=== PATIENT | male | born 1955 | race Caucasian/White ===

== ENCOUNTER 2018-07-07 09:37 | Day surgery (SDC) | payer BC ==
[2018-07-07] MEDS ORDERED: DIPHENHYDRAMINE 50 MG in SODIUM CHLORIDE 50 ML IVPB ONE (10:00)
[2018-07-07] MEDS ORDERED: ACETAMINOPHEN 325 MG TABLET (FP) PO ONE (10:00)
[2018-07-07] MEDS ORDERED: SODIUM CHLORIDE IVPB ONE (10:30)
[2018-07-07] MEDS ORDERED: RITUXIMAB IVPB ONE (10:30)
[2018-07-07 10:56] LABS: BASO % 2.5 % (0-2.0); EOS % 6.2 % (0-4.5); HEMATOCRIT 36.7 % (35.4-49); HEMOGLOBIN 12.3 GM/dL (11.7-16.9); LYMPH % 8.1 % (8-40); MCH 28.8 pg (25.7-33.7); MCHC 33.5 g/dl (32.0-35.9); MEAN CELL VOLUME 85.9 fl (80-96); MEAN PLT VOLUME 9.8 fl (7.5-11.1); NEUT % 76.2 % (42.8-82.8); PLATELET COUNT 40 K/MM3 (134-434); RBC 4.28 M/mm3 (4.00-5.60); WHITE BLOOD COUNT 6.8 K/mm3 (4.0-10.0)
[2018-07-07 11:45] LABS: ALBUMIN 3.1 g/dl (3.4-5.0); ALK PHOS 71 U/L (45-117); ANION GAP 5 MMOL/L (8-16); BILIRUBIN,TOTAL 0.9 mg/dL (0.2-1); BLOOD UREA NITROGEN 24 mg/dL (7-18); CALCIUM 8.5 mg/dL (8.5-10.1); CHLORIDE 100 mmol/L (98-107); CO2 27 mmol/L (21-32); CREATININE 1.1 mg/dL (0.55-1.3); GLUCOSE,RANDOM 138 mg/dL (74-106); PREALBUMIN 33.2 mg/dl (20-40); SGOT/AST 27 U/L (15-37); SGPT/ALT 32 U/L (13-61); SODIUM 132 mmol/L (136-145)
[2018-07-07 12:19] LABS: PLATELET ESTIMATE DECREASED
[2018-07-07] MEDS ORDERED: SODIUM POLYSTYRENE SULFONATE 15 GM/60 ML BOTTLE PO ONE (14:45)
[2018-07-07] MEDS ORDERED: SODIUM CHLORIDE 500 ML IV ONE (15:00)
[2018-07-07 18:46] VITALS: PULSE 67; TEMP 99
[2018-07-07 19:20] VITALS: BP 126/71
== END 2018-07-07 19:20 | disposition home or self-care (01) ==
LOC: JCHEMO 09:37 → J7W 09:39 → JCHEMO 19:20
PROVIDERS: ATTEND Internal Medicine Hematology & Oncology
DX: D69.3 Immune thrombocytopenic purpura (principal)
CPT/HCPCS: 36415; 80053; 83735; 84134; 85025; 96367; 96368; 96375; 96413; 96415; J7030; J9312

== ENCOUNTER 2018-07-14 09:09 | Day surgery (SDC) | payer BC ==
[~2018-07-14 09:09] MED LIST: ACETAMINOPHEN 325 MG TABLET (FP) PO ONE
[2018-07-14] MEDS ORDERED: RITUXIMAB IVPB ONE (09:30)
[2018-07-14] MEDS ORDERED: SODIUM CHLORIDE IVPB ONE (09:30)
[2018-07-14 10:35] LABS: BASO % 2.6 % (0-2.0); EOS % 6.1 % (0-4.5); HEMATOCRIT 36.2 % (35.4-49); HEMOGLOBIN 12.3 GM/dL (11.7-16.9); LYMPH % 9.5 % (8-40); MCH 28.7 pg (25.7-33.7); MCHC 34.1 g/dl (32.0-35.9); MEAN CELL VOLUME 84.2 fl (80-96); MEAN PLT VOLUME 10.3 fl (7.5-11.1); MONO % 8.2 % (3.8-10.2); NEUT % 73.6 % (42.8-82.8); PLATELET COUNT 71 K/MM3 (134-434); RBC 4.29 M/mm3 (4.00-5.60); RDW 17.2 % (11.9-15.9)
[2018-07-14 10:36] LABS: ALBUMIN 3.1 g/dl (3.4-5.0); ALK PHOS 55 U/L (45-117); ANION GAP 7 MMOL/L (8-16); BILIRUBIN,TOTAL 0.9 mg/dL (0.2-1); BLOOD UREA NITROGEN 20 mg/dL (7-18); CALCIUM 8.8 mg/dL (8.5-10.1); CHLORIDE 103 mmol/L (98-107); CO2 24 mmol/L (21-32); CREATININE 1.1 mg/dL (0.55-1.3); GLUCOSE,RANDOM 118 mg/dL (74-106); MAGNESIUM 1.8 mg/dL (1.8-2.4); POTASSIUM 4.8 mmol/L (3.5-5.1); SGOT/AST 28 U/L (15-37); SGPT/ALT 33 U/L (13-61); SODIUM 135 mmol/L (136-145); TOT PROT 7.1 g/dl (6.4-8.2)
[2018-07-14 11:59] LABS: PLATELET ESTIMATE DECREASED
[2018-07-14 16:10] VITALS: TEMP 97.6
[2018-07-14 16:26] VITALS: BP 136/73; PULSE 69
== END 2018-07-14 15:40 | disposition home or self-care (01) ==
LOC: JCHEMO 09:09 → J7W 09:37 → JCHEMO 15:40
PROVIDERS: ATTEND Internal Medicine Hematology & Oncology
DX: D69.3 Immune thrombocytopenic purpura (principal)
CPT/HCPCS: 36415; 80053; 83735; 84134; 85025; 96375; 96413; 96415; J7030; J9312

== ENCOUNTER 2018-07-21 10:48 | Day surgery (SDC) | payer BC ==
[~2018-07-21 10:48] MED LIST changes: +DIPHENHYDRAMINE 50 MG in SODIUM CHLORIDE 50 ML IVPB ONE; +RITUXIMAB IVPB ONE; +SODIUM CHLORIDE IVPB ONE
[2018-07-21 11:53] LABS: BASO % 1.3 % (0-2.0); HEMATOCRIT 35.8 % (35.4-49); HEMOGLOBIN 11.9 GM/dL (11.7-16.9); LYMPH % 7.6 % (8-40); MCHC 33.3 g/dl (32.0-35.9); MEAN CELL VOLUME 83.8 fl (80-96); MEAN PLT VOLUME 10.5 fl (7.5-11.1); NEUT % 77.1 % (42.8-82.8); PLATELET COUNT 141 K/MM3 (134-434); RBC 4.26 M/mm3 (4.00-5.60); RDW 17.4 % (11.9-15.9); WHITE BLOOD COUNT 7.4 K/mm3 (4.0-10.0)
[2018-07-21 17:29] VITALS: TEMP 98.5
[2018-07-21 17:32] VITALS: BP 126/66; PULSE 63
== END 2018-07-21 16:15 | disposition home or self-care (01) ==
LOC: JCHEMO 10:48 → J7W 10:49 → JCHEMO 16:15
PROVIDERS: ATTEND Internal Medicine Hematology & Oncology
DX: D69.3 Immune thrombocytopenic purpura (principal)
CPT/HCPCS: 36415; 85025; 96375; 96413; 96415; J7030; J9312

== ENCOUNTER 2018-07-21 23:59 | Inpatient (IN) | payer BC ==
[2018-07-22 00:19] VITALS: BMI 26.1
--- NOTE | 2018-07-22 00:20 | PDOC ---
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 Pt was given Benadryl today prior to Rituxan, and was told if he felt shortness of breath at home to take Benadryl. Pt stated he took Benadryl with no relief of symptoms. Pt admitted to clearing his throat. Pt denied cough, sputum production, fever, chills, chest pain, palpitations, abdominal pain. Last stress test x2 years ago - reported normal Allergies: NKDA PCP: Dr. Dubose Government Program Manager: Dr. Sharma Past History - Past Medical History Allergies/Adverse Reactions: Allergies Allergy/AdvReac Type Severity Reaction Status Date / Time No Known Drug Allergies Allergy Verified 07/22/18 00:18 Home Medications: Ambulatory Orders Danazol [Danocrine -] 200 mg PO BID 07/22/18 Eltrombopag Olamine [Promacta] 100 mg PO DAILY 07/22/18 Gabapentin 100 mg PO BID 07/22/18 Lisinopril [Zestril] 2.5 mg PO DAILY 07/22/18 Metformin HCl [Glucophage] 1,000 mg PO BID 07/22/18 Metoprolol Tartrate 25 mg PO DAILY 07/22/18 - Suicide/Smoking/Psychosocial Hx Smoking History: Never smoked Have you smoked in the past 12 months: No Information on smoking cessation initiated: No Hx Alcohol Use: No Drug/Substance Use Hx: No Review of Systems - Review of Systems Able to Perform ROS?: Yes Comments:: 07/22/18 00:35 General: denied fever, chills, generalized weakness. HEENT: denied sore throat, rhinorrhea, ear pain. Heart: denied chest pain, palpitations, syncope, diaphoresis. Respiratory: admitted to shortness of breath. denied cough, sputum production, hemoptysis. Abdomen: denied abdominal pain, nausea, vomiting, diarrhea, constipation, blood in stool. : denied dysuria, increased urinary frequency, hematuria, urinary incontinence , flank pain. Back: denied back pain. Musculoskeletal: denied joint pain, muscle pain, joint swelling. Neurological: denied headache, dizziness, numbness, tingling, weakness. Skin: denied rash, laceration, abrasion. *Physical Exam - Vital Signs Last Vital Signs Temp Pulse Resp BP Pulse Ox 97.6 F 81 22 H 145/83 99 07/22/18 00:18 07/22/18 00:18 07/22/18 00:18 07/22/18 00:18 07/22/18 00:18 - Physical Exam Comments: 07/22/18 02:03 Constitutional: Well-nourished, Well-developed, appearing stated age. sitting upright in no apparent distress. HEENT: head is normocephalic, atraumatic. EOMI. PERRLA. Neck: supple. Full ROM. Heart: regular rhythm. no murmurs, rubs or gallops. Lungs: tachypneic. decreased breath sounds bilaterally. no crackles. no wheezing. no stridor. speaking full sentences. Abdomen: soft, nontender. normal bowel sounds. no rebound, guarding, masses. Extremities: peripheral pulses intact. no lower extremity edema. Neurological: CN 2-12 grossly intact. moves all four extremities. Psych: awake, alert, oriented x3. follows commands. answers questions appropriately. Procedures - Bedside Ultrasound Bedside Ultrasound: Lung Remarks: 07/22/18 03:22 Bilateral B-lines. Plethoric IVC. right sided pleural effusion. ED Treatment Course - LABORATORY CBC & Chemistry Diagram: 07/22/18 01:08 07/22/18 06:00 Medical Decision Making - Medical Decision Making 07/22/18 00:53 62 year old male with above PMH presented to ED for SOB s/p Rituxan administration. Initial Vital Signs Temp Pulse Resp BP Pulse Ox 97.6 F 81 22 H 145/83 99 07/22/18 00:18 07/22/18 00:18 07/22/18 00:18 07/22/18 00:18 07/22/18 00:18 Afebrile. No tachycardia. Tachypnea. Mild hypertension. No hypoxia on room air. CBC performed earlier yesterday. No leukocytosis. No anemia. Labs ordered: CBC, CMP, mag, troponin, VBG Imaging ordered: CXR Medications ordered: duoneb EKG performed at 0017: rate 81, regular rhythm, left axis, normal intervals, nonspecific ST changes. 07/22/18 01:23 VBG - respiratory alkalosis 07/22/18 02:04 CBC WBC 9.0 K/mm3 (4.0-10.0) 07/22/18 01:08 RBC 4.36 M/mm3 (4.00-5.60) 07/22/18 01:08 Hgb 12.4 GM/dL (11.7-16.9) 07/22/18 01:08 Hct 36.8 % (35.4-49) 07/22/18 01:08 MCV 84.4 fl (80-96) 07/22/18 01:08 MCH 28.5 pg (25.7-33.7) 07/22/18 01:08 MCHC 33.8 g/dl (32.0-35.9) 07/22/18 01:08 RDW 17.4 % (11.9-15.9) H 07/22/18 01:08 Plt Count 73 K/MM3 (134-434) L D 07/22/18 01:08 MPV 10.2 fl (7.5-11.1) 07/22/18 01:08 Absolute Neuts (auto) 7.2 K/mm3 (1.5-8.0) 07/22/18 01:08 Neutrophils % 80.2 % (42.8-82.8) 07/22/18 01:08 Lymphocytes % 6.8 % (8-40) L 07/22/18 01:08 Monocytes % 6.4 % (3.8-10.2) 07/22/18 01:08 Eosinophils % 4.3 % (0-4.5) 07/22/18 01:08 Basophils % 2.3 % (0-2.0) H 07/22/18 01:08 Nucleated RBC % 0 % (0-0) 07/22/18 01:08 No leukocytosis. No anemia. CMP Sodium 129 mmol/L (136-145) L 07/22/18 01:08 Potassium 5.7 mmol/L (3.5-5.1) H 07/22/18 01:08 Chloride 102 mmol/L (98-107) 07/22/18 01:08 Carbon Dioxide 22 mmol/L (21-32) 07/22/18 01:08 Anion Gap 5 MMOL/L (8-16) L 07/22/18 01:08 BUN 17 mg/dL (7-18) 07/22/18 01:08 Creatinine 0.8 mg/dL (0.55-1.3) 07/22/18 01:08 Creat Clearance w eGFR 97.63 (>60) 07/22/18 01:08 Random Glucose 71 mg/dL (74-106) L 07/22/18 01:08 Calcium 8.1 mg/dL (8.5-10.1) L 07/22/18 01:08 Magnesium 1.9 mg/dL (1.8-2.4) 07/22/18 01:08 Total Bilirubin 0.8 mg/dL (0.2-1) 07/22/18 01:08 AST 37 U/L (15-37) 07/22/18 01:08 ALT 43 U/L (13-61) 07/22/18 01:08 Alkaline Phosphatase 65 U/L (45-117) 07/22/18 01:08 Troponin I 0.02 ng/ml (0.00-0.05) 07/22/18 01:08 B-Natriuretic Peptide 2318.5 pg/ml (5-125) H 07/22/18 01:08 Total Protein 7.1 g/dl (6.4-8.2) 07/22/18 01:08 Albumin 3.0 g/dl (3.4-5.0) L 07/22/18 01:08 Hyponatremia. Hyperkalemia. -No EKG changes -Will not treat No MARTÍN. Normal mag. Normal troponin. BNP elevation. -No peripheral edema -Pending CXR for pulmonary fluid overload evaluation Dr. Lauren pagesharron for recommendations. 07/22/18 02:53 Bedside Ultrasound performed: bilateral B-lines, right sided pleural effusion, plethoric IVC. New onset CHF. Results explained to patient. Pt agrees to be admitted. Medications ordered: Lasix 40 mg IV Pt admitted to Dr. Balderas's service. *DC/Admit/Observation/Transfer Diagnosis at time of Disposition: CHF (congestive heart failure), History of ITP - Discharge Dispostion Disposition: HOME Condition at time of disposition: Stable Decision to Admit order: Yes - Referrals - Patient Instructions - Post Discharge Activity
[2018-07-22] MEDS ORDERED: ALBUTEROL SO4 2.5/IPRATROPIUM 0.5 INH SOL 3 ML VIAL.NEB. NEB ONE ×2 (00:50→00:54)
--- NOTE | 2018-07-22 01:10 | PDOC ---
Documentation entered by Vandana Lawrence SCRIBE, acting as scribe for Nedra Browning DO. Nedra Browning DO: This documentation has been prepared by the [facility] child[facility] Daisy, SCRIBE, under my direction and personally reviewed by me in its entirety. I confirm that the documentation accurately reflects all work, treatment, procedures, and medical decision making performed by me. Attending Attestation - Resident Resident Name: Dior Castorena - ED Attending Attestation I have performed the following: I have examined & evaluated the patient, The case was reviewed & discussed with the resident, I agree w/resident's findings & plan - HPI HPI: 07/22/18 00:39 The patient is a 62 YOM with a PMH of ITP on Rituxan, HTN, and DM who presents to the ER for evaluation of shortness of breath in the setting of receiving Rituxan today. Patient was given Benadryl before he was given the Rituxan and took Benadryl at home as well with no improvement of his shortness of breath. The patient denies chest pain, headache and dizziness. Denies fever, chills, nausea, vomit, diarrhea and constipation. Denies dysuria, frequency, urgency and hematuria. Allergies: NKDA - Physicial Exam PE: 07/22/18 00:51 ADULT PHYSICAL EXAM Constitutional: Awake, alert, oriented. No acute distress. Eyes: PERRL. EOMI. Conjunctivae are not pale. ENT: Mucous membranes are moist and intact. Posterior pharynx without exudates or erythema. Cardiovascular: Regular rate. Regular rhythm. S1, S2 regular. Distal pulses are 2+ and symmetric. Pulmonary/Chest: No evidence of respiratory distress. (+) Diminished at the bases bilaterally. No wheezing, rales or rhonchi. Abdominal: Soft and non-distended. There is no tenderness. No rebound, guarding or rigidity. Musculoskeletal: No edema. Full range of motion in all extremities. No calf tenderness. Radial/pedal pulses are intact and 2+ bilaterally Skin: Skin is warm and dry. Neurological: Alert and oriented to person, place, and time. Cranial nerves II- XII are grossly intact. Psychiatric: Good eye contact. Normal interaction, affect and behavior. - Medical Decision Making 07/22/18 00:58 a/p: 62yo male with hx of ITP with rituxan infusion today -last infusion -states usually he receives benadryl pt the infusion, but today he felt more tired and sob -per , on prior infusions, pt has had benadryl to avoid all side effects. Pt denies parekh, no neck pain, no cp/palpitations -will give albuterol -will obtain labs, and cxr -pt had labs earlier- plts 141 -pt had benadryl earler -hx of smoking -will send chem, labs, cxr, ekg, will monitor and reassess -pt is nontoxic in appearance 07/22/18 01:49 pt with mild hyponatremia and hyperkalemia will medicate and reassess will need a repeat chem prior to dc 07/22/18 01:50 bnp >2000 Heart Score/ECG Review - ECG Intrepretation Comment:: 07/22/18 00:54 sinus at 81, nl axis, nl interval, LVH, no acute st/t wave findings
[2018-07-22 01:19] LABS: BASO % 2.3 % (0-2.0); EOS % 4.3 % (0-4.5); HEMATOCRIT 36.8 % (35.4-49); HEMOGLOBIN 12.4 GM/dL (11.7-16.9); LYMPH % 6.8 % (8-40); MCH 28.5 pg (25.7-33.7); MCHC 33.8 g/dl (32.0-35.9); MEAN CELL VOLUME 84.4 fl (80-96); MEAN PLT VOLUME 10.2 fl (7.5-11.1); MONO % 6.4 % (3.8-10.2); NEUT % 80.2 % (42.8-82.8); PLATELET COUNT 73 K/MM3 (134-434); RBC 4.36 M/mm3 (4.00-5.60); RDW 17.4 % (11.9-15.9)
[2018-07-22 01:20] LABS: VENOUS PC02 31.4 mmHg (41-51); VENOUS PH 7.42 (7.31-7.41)
[2018-07-22 01:46] LABS: ALK PHOS 65 U/L (45-117); ANION GAP 5 MMOL/L (8-16); BILIRUBIN,TOTAL 0.8 mg/dL (0.2-1); BLOOD UREA NITROGEN 17 mg/dL (7-18); CALCIUM 8.1 mg/dL (8.5-10.1); CHLORIDE 102 mmol/L (98-107); CO2 22 mmol/L (21-32); CREATININE 0.8 mg/dL (0.55-1.3); GLUCOSE,RANDOM 71 mg/dL (74-106); POTASSIUM 5.7 mmol/L (3.5-5.1); SGOT/AST 37 U/L (15-37); SGPT/ALT 43 U/L (13-61); SODIUM 129 mmol/L (136-145); TOT PROT 7.1 g/dl (6.4-8.2)
[2018-07-22 01:48] LABS: MAGNESIUM 1.9 mg/dL (1.8-2.4); N-TERMINAL BNP 2318.5 pg/ml (5-125)
[2018-07-22 02:09] LABS: INR 1.08 (0.83-1.09); PROTHROMBIN TIME (PATIENT) 12.7 SEC (9.7-13.0)
[2018-07-22] MEDS ORDERED: FUROSEMIDE 40 MG/4 ML INJECTABLE VIAL IVPUSH ONE ×2 (03:18→03:35)
[2018-07-22] MEDS ORDERED: FUROSEMIDE 40 MG/4 ML INJECTABLE VIAL ONE (03:42)
[2018-07-22 07:09] LABS: ANION GAP 5 MMOL/L (8-16); BLOOD UREA NITROGEN 17 mg/dL (7-18); CALCIUM 8.1 mg/dL (8.5-10.1); CHLORIDE 103 mmol/L (98-107); CO2 22 mmol/L (21-32); CREATININE 0.9 mg/dL (0.55-1.3); GLUCOSE,RANDOM 71 mg/dL (74-106); POTASSIUM 5.2 mmol/L (3.5-5.1); SODIUM 131 mmol/L (136-145)
[2018-07-22 07:59] VITALS: BP 126/74; PULSE 70; TEMP 97.9
--- NOTE | 2018-07-22 09:12 | HP ---
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 Pt provides hx of "allergic type reaction to first infusion of Rituxan-- has since been pre medicated with benadryl for treatments successfully; however after going home after completing treatment patient reports began to feel scratchy throat with "some difficulty " breathing which prompted ER visit. Pt denied cough, sputum production, fever, chills, chest pain, palpitations, abdominal pain. Denies hx of CHF in the past Patient has established out patient cardiac follow up. Case discussed with Oncology Dr Lauren and Cardiology Dr Carey Patient will follow up with both as out patient History Source: Patient, Medical Record Limitations to Obtaining History: No Limitations - Past Medical History Cardiovascular: Yes: HTN Heme/Onc: Yes: Thrombocytopenia (on Rituxin for ITP - just completed last infusion followed by Dr Lauren) Endocrine: Yes: Diabetes Mellitus - Smoking History Smoking history: Current every day smoker Have you smoked in the past 12 months: Yes Aproximately how many cigarettes per day: 30 - Alcohol/Substance Use Hx Alcohol Use: No - Social History ADL: Independent Home Medications - Allergies Allergies/Adverse Reactions: Allergies Allergy/AdvReac Type Severity Reaction Status Date / Time No Known Drug Allergies Allergy Verified 07/22/18 00:18 - Home Medications Home Medications: Ambulatory Orders Danazol [Danocrine -] 200 mg PO BID 07/22/18 Eltrombopag Olamine [Promacta] 100 mg PO DAILY 07/22/18 Gabapentin 100 mg PO BID 07/22/18 Lisinopril [Zestril] 2.5 mg PO DAILY 07/22/18 Metformin HCl [Glucophage] 1,000 mg PO BID 07/22/18 Metoprolol Tartrate 25 mg PO DAILY 07/22/18 Review of Systems - Review of Systems Constitutional: reports: No Symptoms. denies: Chills, Diaphoresis, Fever Eyes: reports: No Symptoms HENT: reports: No Symptoms, Other (throat scrathy difficulty breathing no difficulty with speech) Neck: reports: No Symptoms Cardiovascular: reports: No Symptoms. denies: Palpitations, Shortness of Breath Respiratory: denies: Cough, Orthopnea, SOB, Wheezing Gastrointestinal: reports: No Symptoms Genitourinary: reports: No Symptoms Breasts: reports: No Symptoms Reported Musculoskeletal: reports: No Symptoms Integumentary: reports: No Symptoms Neurological: reports: No Symptoms Endocrine: reports: No Symptoms Hematology/Lymphatic: reports: Easily Bruised, Other (patient with DX ITP) Psychiatric: reports: No Symptoms Physical Examination Vital Signs: Vital Signs Temperature 97.9 F 07/22/18 07:55 Pulse Rate 70 07/22/18 07:55 Respiratory Rate 18 07/22/18 07:55 Blood Pressure 126/74 07/22/18 07:55 O2 Sat by Pulse Oximetry (%) 97 07/22/18 04:40 Constitutional: Yes: Well Nourished, No Distress, Calm. No: Diaphoresis, Mild Distress Eyes: Yes: WNL HENT: Yes: WNL Neck: Yes: WNL Cardiovascular: Yes: Regular Rate and Rhythm, Murmur. No: JVD, Gallop Respiratory: Yes: CTA Bilaterally (mild decrease in BS bilaterally). No: Rales , Rhonchi, SOB on Exertion, Stridor, Tachypnea, Wheezes Gastrointestinal: Yes: WNL ...Rectal Exam: Yes: Deferred Renal/: Yes: WNL Breast(s): Yes: WNL Musculoskeletal: Yes: WNL Extremities: Yes: WNL Edema: No Peripheral Pulses WNL: Yes Integumentary: Yes: WNL, Bruising Neurological: Yes: WNL, Alert, Oriented ...Motor Strength: WNL Psychiatric: Yes: WNL, Alert, Oriented Labs: CBC, BMP 07/22/18 01:08 07/22/18 06:00 Problem List - Problems (1) Drug-induced hypersensitivity reaction Code(s): T78.40XA - ALLERGY, UNSPECIFIED, INITIAL ENCOUNTER (2) HTN (hypertension) Code(s): I10 - ESSENTIAL (PRIMARY) HYPERTENSION (3) Diabetes mellitus Code(s): E11.9 - TYPE 2 DIABETES MELLITUS WITHOUT COMPLICATIONS (4) History of ITP Code(s): Z86.2 - PRSNL HISTORY OF DIS OF THE BLD/BLD-FORM ORG/IMMUN MECHNSM (5) Hyperkalemia Code(s): E87.5 - HYPERKALEMIA
--- NOTE | 2018-07-22 09:33 | DS ---
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 Pt provides hx of "allergic type reaction to first infusion of Rituxan-- has since been pre medicated with benadryl for treatments successfully; however after going home after completing treatment patient reports began to feel scratchy throat with "some difficulty " breathing which prompted ER visit. Pt denied cough, sputum production, fever, chills, chest pain, palpitations, abdominal pain. Denies hx of CHF in the past Patient has established out patient cardiac follow up. Case discussed with Oncology Dr Lauren and Cardiology Dr Carey Patient will follow up with both as out patient Constitutional: Yes: Well Nourished, Calm Eyes: Yes: Conjunctiva Clear, EOM Intact HENT: Yes: Atraumatic, Normocephalic Neck: Yes: Supple, Trachea Midline Cardiovascular: Yes: Regular Rate and Rhythm, Murmur Respiratory: Yes: Regular, Diminished. No: Rales, Rhonchi, Stridor, Wheezes Gastrointestinal: Yes: Normal Bowel Sounds ...Rectal Exam: Yes: Deferred Renal/: Yes: WNL Breast(s): Yes: WNL Musculoskeletal: Yes: WNL Extremities: Yes: WNL Edema: No Peripheral Pulses WNL: Yes Integumentary: Yes: WNL Neurological: Yes: WNL ...Motor Strength: WNL Psychiatric: Yes: WNL Labs: CBC, BMP 07/22/18 01:08 07/22/18 06:00 Discharge Summary Reason For Visit: HISTORY OF IDIOPATHIC THROMBOCYTOPENIA PURPURA Current Active Problems CHF (congestive heart failure) (Acute) Diabetes mellitus (Acute) Drug-induced hypersensitivity reaction (Acute) HTN (hypertension) (Acute) History of ITP (Acute) Hyperkalemia (Acute) Condition: Stable - Instructions Disposition: HOME - Home Medications Comprehensive Discharge Medication List: Ambulatory Orders Danazol [Danocrine -] 200 mg PO BID 07/22/18 Eltrombopag Olamine [Promacta] 100 mg PO DAILY 07/22/18 Gabapentin 100 mg PO BID 07/22/18 Lisinopril [Zestril] 2.5 mg PO DAILY 07/22/18 Metformin HCl [Glucophage] 1,000 mg PO BID 07/22/18 Metoprolol Tartrate 25 mg PO DAILY 07/22/18
[2018-07-22] MEDS ORDERED: metFORMIN HCL 500 MG TABLET (FP) PO SCH (10:00)
[2018-07-22] MEDS ORDERED: METOPROLOL TARTRATE 25 MG TABLET (FP) PO SCH (10:00)
[2018-07-22] MEDS ORDERED: GABAPENTIN 100 MG CAPSULE (FP) PO SCH (10:00)
[2018-07-22] MEDS ORDERED: ELTROMBOPAG OLAMINE PO SCH (10:00)
[2018-07-22] MEDS ORDERED: LISINOPRIL 5 MG TABLET (FP) PO SCH (10:15)
[2018-07-22] MEDS ORDERED: DANAZOL 200 MG CAPSULE PO SCH (11:00)
--- NOTE | 2018-07-22 12:16 | EKG ---
Test Reason : Blood Pressure : / mmHG Vent. Rate : 081 BPM Atrial Rate : 081 BPM P-R Int : 136 ms QRS Dur : 100 ms QT Int : 394 ms P-R-T Axes : 051 -03 063 degrees QTc Int : 457 ms NORMAL SINUS RHYTHM POSSIBLE LEFT ATRIAL ENLARGEMENT NONSPECIFIC ST AND T WAVE ABNORMALITY ABNORMAL ECG NO PREVIOUS ECGS AVAILABLE Confirmed by FLORENCIO LUCERO MD ([id number]) on 07/22/2018 12:15:27 PM Referred By: Verena PETERSON Confirmed By:FLORENCIO LUCERO MD
== END 2018-07-22 11:31 | disposition home or self-care (01) | DRG 292 ==
LOC: JER 23:59 → JERBED 07-22 03:21 → J4W 07-22 04:56 → OBSVTOIN 07-22 09:34
PROVIDERS: ADMIT Family Medicine; ATTEND Family Medicine
DX: I11.0 Hypertensive heart disease with heart failure (principal); E87.3 Alkalosis; E87.1 Hypo-osmolality and hyponatremia; I50.9 Heart failure, unspecified; R06.02 Shortness of breath; T45.1X5A Adverse effect of antineoplastic and immunosuppressive drugs, initial encounter; Y92.89 Other specified places as the place of occurrence of the external cause; E11.9 Type 2 diabetes mellitus without complications; Z79.84 Long term (current) use of oral hypoglycemic drugs; D69.6 Thrombocytopenia, unspecified; Z86.2 Personal history of diseases of the blood and blood-forming organs and certain disorders involving the immune mechanism; E87.5 Hyperkalemia; F17.210 Nicotine dependence, cigarettes, uncomplicated
CPT/HCPCS: 36415; 71045-TC-FY; 71046-TC-FY; 80048; 80053; 82803; 83735; 83880; 84484; 85025; 85610; 85730; 93005; 93010; 99284-25; G0378

== ENCOUNTER 2019-02-14 10:30 | Day surgery (SDC) | payer BC ==
[2019-02-14] MEDS ORDERED: [UNRECOGNIZED DRUG - OTHER] IVPB ONE (11:30)
[2019-02-14] MEDS ORDERED: WATER IVPB ONE (11:30)
[2019-02-14] MEDS ORDERED: DEXTROSE 5% IVPB ONE (11:30)
[2019-02-14] MEDS ORDERED: PRO IVPB ONE ×2 (11:30)
[2019-02-14] MEDS ORDERED: IMMUN GLOB IVPB ONE ×2 (11:30)
[2019-02-14] MEDS ORDERED: DIPHENHYDRAMINE IVPB ONE (11:30)
[2019-02-14] MEDS ORDERED: IGA IVPB ONE ×2 (11:30)
[2019-02-14] MEDS ORDERED: ACETAMINOPHEN 325 MG TABLET (FP) PO ONE (11:30)
[2019-02-14 16:53] VITALS: TEMP 97.9
[2019-02-14 16:54] VITALS: BP 140/60; PULSE 61
== END 2019-02-14 16:56 | disposition home or self-care (01) ==
LOC: JINFUSION 10:30 → J7W 10:31 → JINFUSION 16:56
PROVIDERS: ATTEND Internal Medicine Hematology & Oncology
PROC: 3E033GC Introduction of Other Therapeutic Substance into Peripheral Vein, Percutaneous Approach (ICD-10-PCS; principal; 2019-02-14)
DX: D69.3 Immune thrombocytopenic purpura (principal)
CPT/HCPCS: 96365; 96366; J1459

== ENCOUNTER 2019-02-15 10:04 | Day surgery (SDC) | payer BC ==
[2019-02-15] MEDS ORDERED: ACETAMINOPHEN 325 MG TABLET (FP) ONE (10:35)
[2019-02-15] MEDS ORDERED: ACETAMINOPHEN 325 MG TABLET (FP) PO ONE (10:45)
[2019-02-15] MEDS ORDERED: [UNRECOGNIZED DRUG - OTHER] IVPB ONE (11:30)
[2019-02-15] MEDS ORDERED: PRO IVPB ONE (11:30)
[2019-02-15] MEDS ORDERED: IMMUN GLOB IVPB ONE (11:30)
[2019-02-15] MEDS ORDERED: IGA IVPB ONE (11:30)
[2019-02-15 16:46] VITALS: BP 140/62; PULSE 58; TEMP 98
== END 2019-02-15 16:00 | disposition home or self-care (01) ==
LOC: JINFUSION 10:04 → J7W 10:13 → JINFUSION 16:00
PROVIDERS: ATTEND Internal Medicine Hematology & Oncology
PROC: 3E033GC Introduction of Other Therapeutic Substance into Peripheral Vein, Percutaneous Approach (ICD-10-PCS; principal; 2019-02-15)
DX: D69.3 Immune thrombocytopenic purpura (principal)
CPT/HCPCS: 36415; 96365; 96366; J1459

== ENCOUNTER 2020-04-26 08:30 | Day surgery (SDC) | payer OTHER, BC ==
[2020-04-26] MEDS ORDERED: DIPHENHYDRAMINE 50 MG in SODIUM CHLORIDE 50 ML IVPB ONE (10:00)
[2020-04-26] MEDS ORDERED: ACETAMINOPHEN 325 MG TABLET (FP) PO ONE (10:00)
[2020-04-26] MEDS ORDERED: SODIUM CHLORIDE IVPB ONE (10:30)
[2020-04-26] MEDS ORDERED: RITUXIMAB ABBS IVPB ONE (10:30)
[2020-04-26 10:47] LABS: BASO % 1.7 % (0-2.0); EOS % 4.3 % (0-4.5); HEMATOCRIT 33.3 % (35.4-49); HEMOGLOBIN 11.5 GM/dL (11.7-16.9); LYMPH % 6.3 % (8-40); MCH 31.5 pg (25.7-33.7); MCHC 34.5 g/dl (32.0-35.9); MEAN CELL VOLUME 91.2 fl (80-96); MEAN PLT VOLUME 10.9 fl (7.5-11.1); MONO % 6.5 % (3.8-10.2); NEUT % 81.2 % (42.8-82.8); RBC 3.65 M/mm3 (4.00-5.60); RDW 15.4 % (11.9-15.9); WHITE BLOOD COUNT 9.1 K/mm3 (4.0-10.0)
[2020-04-26 11:20] LABS: PLATELET COUNT 8 K/MM3 (134-434)
[2020-04-26 11:26] LABS: POTASSIUM 4.2 mmol/L (3.5-5.1)
[2020-04-26 11:28] LABS: ALBUMIN 3.6 g/dl (3.4-5.0); CALCIUM 8.7 mg/dL (8.5-10.1)
[2020-04-26 11:29] LABS: BLOOD UREA NITROGEN 22.3 mg/dL (7-18)
[2020-04-26 11:31] LABS: BILIRUBIN,DIRECT 0.2 mg/dL (0.0-0.2); CREATININE 0.9 mg/dL (0.55-1.3)
[2020-04-26 11:33] LABS: BILIRUBIN,TOTAL 0.8 mg/dL (0.2-1); TOT PROT 6.2 g/dl (6.4-8.2)
[2020-04-26 12:06] LABS: PLATELET ESTIMATE DECREASED
[2020-04-26 14:42] VITALS: TEMP 98.4
[2020-04-26 14:45] VITALS: BP 143/67; PULSE 69
== END 2020-04-26 14:00 | disposition home or self-care (01) ==
LOC: JCHEMO 08:30
PROVIDERS: ATTEND Internal Medicine Hematology & Oncology
DX: D69.3 Immune thrombocytopenic purpura (principal); E11.9 Type 2 diabetes mellitus without complications; I10 Essential (primary) hypertension; E03.9 Hypothyroidism, unspecified; E78.00 Pure hypercholesterolemia, unspecified
CPT/HCPCS: 36415; 80053; 80076; 85025; 96375; 96413; 96415; Q5115

== ENCOUNTER 2020-05-04 08:32 | Day surgery (SDC) | payer OTHER, BC ==
[2020-05-04] MEDS ORDERED: DIPHENHYDRAMINE 50 MG in SODIUM CHLORIDE 50 ML IVPB ONE (10:00)
[2020-05-04] MEDS ORDERED: ACETAMINOPHEN 325 MG TABLET (FP) PO ONE (10:00)
[2020-05-04] MEDS ORDERED: SODIUM CHLORIDE IVPB ONE (10:30)
[2020-05-04] MEDS ORDERED: RITUXIMAB ABBS IVPB ONE (10:30)
[2020-05-04 11:58] LABS: BASO % 1.9 % (0-2.0); EOS % 5.6 % (0-4.5); HEMATOCRIT 35.7 % (35.4-49); HEMOGLOBIN 12.3 GM/dL (11.7-16.9); LYMPH % 7.8 % (8-40); MCH 31.6 pg (25.7-33.7); MCHC 34.4 g/dl (32.0-35.9); MEAN CELL VOLUME 91.8 fl (80-96); MEAN PLT VOLUME 10.6 fl (7.5-11.1); MONO % 6.8 % (3.8-10.2); NEUT % 77.9 % (42.8-82.8); RBC 3.89 M/mm3 (4.00-5.60); RDW 15.4 % (11.9-15.9); WHITE BLOOD COUNT 7.2 K/mm3 (4.0-10.0)
[2020-05-04 12:00] LABS: PLATELET COUNT 8 K/MM3 (134-434)
[2020-05-04 12:18] LABS: POTASSIUM 4.2 mmol/L (3.5-5.1)
[2020-05-04 12:20] LABS: CALCIUM 8.4 mg/dL (8.5-10.1)
[2020-05-04 12:21] LABS: ALBUMIN 3.8 g/dl (3.4-5.0); BLOOD UREA NITROGEN 17.6 mg/dL (7-18)
[2020-05-04 12:23] LABS: BILIRUBIN,DIRECT 0.2 mg/dL (0.0-0.2)
[2020-05-04 12:24] LABS: CREATININE 0.8 mg/dL (0.55-1.3)
[2020-05-04 12:25] LABS: BILIRUBIN,TOTAL 0.8 mg/dL (0.2-1); TOT PROT 6.7 g/dl (6.4-8.2)
[2020-05-04 17:23] VITALS: BP 125/77; TEMP 98.4
[2020-05-04 17:24] VITALS: PULSE 57
== END 2020-05-04 13:10 | disposition home or self-care (01) ==
LOC: JCHEMO 08:32
PROVIDERS: ATTEND Internal Medicine Hematology & Oncology
DX: D69.3 Immune thrombocytopenic purpura (principal)
CPT/HCPCS: 36415; 80053; 80076; 85025; 96375; 96413; 96415; Q5115

== ENCOUNTER 2020-05-10 08:58 | Day surgery (SDC) | payer OTHER, BC ==
[2020-05-10] MEDS ORDERED: DIPHENHYDRAMINE 50 MG in SODIUM CHLORIDE 50 ML IVPB ONE (10:00)
[2020-05-10] MEDS ORDERED: ACETAMINOPHEN 325 MG TABLET (FP) PO ONE (10:00)
[2020-05-10] MEDS ORDERED: SODIUM CHLORIDE IVPB ONE (10:30)
[2020-05-10] MEDS ORDERED: RITUXIMAB ABBS IVPB ONE (10:30)
[2020-05-10 12:18] LABS: BASO % 1.4 % (0-2.0); EOS % 6.3 % (0-4.5); HEMATOCRIT 36.6 % (35.4-49); HEMOGLOBIN 12.5 GM/dL (11.7-16.9); LYMPH % 9.2 % (8-40); MCH 31.5 pg (25.7-33.7); MEAN CELL VOLUME 92.6 fl (80-96); MEAN PLT VOLUME 11.4 fl (7.5-11.1); MONO % 6.7 % (3.8-10.2); NEUT % 76.4 % (42.8-82.8); RBC 3.95 M/mm3 (4.00-5.60); RDW 15.1 % (11.9-15.9)
[2020-05-10 12:36] LABS: PLATELET COUNT 10 K/MM3 (134-434)
[2020-05-10 12:40] LABS: POTASSIUM 4.8 mmol/L (3.5-5.1)
[2020-05-10 12:44] LABS: ALBUMIN 3.8 g/dl (3.4-5.0); BLOOD UREA NITROGEN 16.4 mg/dL (7-18)
[2020-05-10 12:48] LABS: BILIRUBIN,DIRECT 0.2 mg/dL (0.0-0.2); CREATININE 0.9 mg/dL (0.55-1.3)
[2020-05-10 12:49] LABS: BILIRUBIN,TOTAL 1.1 mg/dL (0.2-1); TOT PROT 6.9 g/dl (6.4-8.2)
[2020-05-10 15:03] VITALS: BP 147/73; PULSE 66; TEMP 98.4
== END 2020-05-10 15:18 | disposition home or self-care (01) ==
LOC: JCHEMO 08:58
PROVIDERS: ATTEND Internal Medicine Hematology & Oncology
DX: D69.3 Immune thrombocytopenic purpura (principal)
CPT/HCPCS: 36415; 80053; 80076; 85025; 96413; 96415; Q5115

== ENCOUNTER 2021-01-28 17:10 | Emergency (ER) | payer OTHER, BC ==
[2021-01-28 17:45] VITALS: TEMP 98; BMI 27.9
[2021-01-28] MEDS ORDERED: SODIUM CHLORIDE 1,000 ML IV STA ×2 (18:27→19:32)
[2021-01-28 19:13] LABS: HEMATOCRIT 45.4 % (35.4-49); HEMOGLOBIN 15.3 GM/dL (11.7-16.9); MCH 30.3 pg (25.7-33.7); MCHC 33.7 g/dl (32.0-35.9); MEAN CELL VOLUME 89.7 fl (80-96); MEAN PLT VOLUME 9.9 fl (7.5-11.1); PLATELET COUNT 41 10^3/uL (134-434); RBC 5.06 M/mm3 (4.00-5.60); RDW 14.9 % (11.9-15.9); WHITE BLOOD COUNT 19.8 K/mm3 (4.0-10.0)
[2021-01-28 19:16] LABS: VENOUS BASE EXCESS -4.4 mmol/L (-2-2); VENOUS O2 SATURATION 97.3 % (70-80); VENOUS PCO2 30.7 mmHg (38-52); VENOUS PH 7.407 (7.310-7.410)
[2021-01-28 19:35] LABS: CHLORIDE 98 mmol/L (98-107); SODIUM 128 mmol/L (136-145)
[2021-01-28 19:36] LABS: CALCIUM 8.9 mg/dL (8.5-10.1)
[2021-01-28 19:37] LABS: ALBUMIN 3.3 g/dl (3.4-5.0); ANION GAP 13 MMOL/L (8-16); BLOOD UREA NITROGEN 40.7 mg/dL (7-18); CO2 18 mmol/L (21-32)
[2021-01-28 19:40] LABS: ANISOCYTOSIS 1+; CREATININE 1.5 mg/dL (0.55-1.3); MACROCYTOSIS 0; PLATELET ESTIMATE DECREASED; SGOT/AST 18 U/L (15-37); SGPT/ALT 22 U/L (13-61)
[2021-01-28 19:41] LABS: BILIRUBIN,TOTAL 0.7 mg/dL (0.2-1)
[2021-01-28 19:42] LABS: TOT PROT 6.6 g/dl (6.4-8.2)
[2021-01-28 19:43] LABS: ALK PHOS 114 U/L (45-117)
[2021-01-28 19:45] LABS: GLUCOSE,RANDOM 623 mg/dL (74-106)
[2021-01-28 20:53] LABS: EPI CELLS 2 /uL (0-25.1); HYALINE CASTS 0 /uL (0-3.1); URINE APPEARANCE CLEAR; URINE BACTERIA 1 /uL (0-1359); URINE BILIRUBIN NEGATIVE (NEGATIVE); URINE COLOR YELLOW; URINE GLUCOSE (UA) 3+ (NEGATIVE); URINE KETONE NEGATIVE (NEGATIVE); URINE LEUK ESTERASE NEGATIVE (NEGATIVE); URINE NITRITE NEGATIVE (NEGATIVE); URINE PROTEIN 1+ (NEGATIVE); URINE RBC 3 /uL (0-23.9); URINE UROBILINOGEN 0.2 mg/dL (0.2-1.0); URINE WBC 1 /uL (0-25.8)
[2021-01-28 22:41] LABS: CHLORIDE 103 mmol/L (98-107); SODIUM 134 mmol/L (136-145)
[2021-01-28 22:42] LABS: ANION GAP 5 MMOL/L (8-16); BLOOD UREA NITROGEN 35.1 mg/dL (7-18); CALCIUM 8.2 mg/dL (8.5-10.1); CO2 26 mmol/L (21-32)
[2021-01-28 22:46] LABS: CREATININE 1.1 mg/dL (0.55-1.3)
[2021-01-28 22:58] LABS: GLUCOSE,RANDOM 436 mg/dL (74-106)
[2021-01-28] MEDS ORDERED: metFORMIN HCL 500 MG TABLET (FP) PO ONE (23:12)
[2021-01-28] MEDS ORDERED: metFORMIN HCL 500 MG TABLET (FP) ONE (23:19)
[2021-01-28 23:38] LABS: HEMATOCRIT 43.5 % (35.4-49); HEMOGLOBIN 14.6 GM/dL (11.7-16.9); MCH 29.9 pg (25.7-33.7); MCHC 33.4 g/dl (32.0-35.9); MEAN CELL VOLUME 89.3 fl (80-96); MEAN PLT VOLUME 9.7 fl (7.5-11.1); RBC 4.87 M/mm3 (4.00-5.60); RDW 14.6 % (11.9-15.9); WHITE BLOOD COUNT 14.3 K/mm3 (4.0-10.0)
[2021-01-28 23:41] LABS: PLATELET COUNT 29 10^3/uL (134-434)
[2021-01-29 00:03] LABS: ANISOCYTOSIS 3+; MACROCYTOSIS 0; PLATELET ESTIMATE DECREASED
[2021-01-29 00:05] VITALS: BP 151/68; PULSE 75
== END 2021-01-29 00:27 | disposition home or self-care (01) ==
LOC: JER 17:10
PROC: 3E0337Z Introduction of Electrolytic and Water Balance Substance into Peripheral Vein, Percutaneous Approach (ICD-10-PCS; principal; 2021-01-28)
PROC: 3E0337Z Introduction of Electrolytic and Water Balance Substance into Peripheral Vein, Percutaneous Approach (ICD-10-PCS; 2021-01-28)
DX: R73.9 Hyperglycemia, unspecified (principal); D72.829 Elevated white blood cell count, unspecified; Z86.2 Personal history of diseases of the blood and blood-forming organs and certain disorders involving the immune mechanism
CPT/HCPCS: 36415; 71045-TC-FY; 80048; 80053; 81003; 82010; 82803; 82962; 85025; 93005; 93010; 96360; 96361; 99285-25; C9803; U0003; U0005